=== PATIENT | female | born 1990 | race Two or more races ===

== ENCOUNTER 2017-08-22 03:22 | Emergency (ER) | payer BC, OTHER ==
[~2017-08-22] VITALS: Ht 157.5 cm; Wt 72.1 kg
[~2017-08-22 03:22] MED LIST: MELO7.5T5 PO; TRAM50TA PO; [UNRECOGNIZED DRUG - CODE] PO
--- NOTE | 2017-08-22 03:28 | ED.ADGEN ---
Past History Past Medical History: No Pertinent History, Other (JESUS MANUEL GARAY MD) Past Surgical History: No Surgical History (JESUS MANUEL GARAY MD) Smoking: Non-smoker Alcohol Use: None Drug Use: None (JESUS MANUEL GARAY MD) Adult General Chief Complaint Chief Complaint " I ve been vomiting... and now I got this chest pain here on the right.. and I could not sleep tonight..." (JESUS MANUEL GARAY MD) HPI HPI Patient is a 26 year old female who presents with above hx and complaints of Rt. chest wall pain. Pt. states it started with nausea and vomiting 3 - 4 days ago and now dry heaves. Pt. developed chest pain that is reproducible by palpation, deep breaths and cough on the right. Mild right upper quadrant abdomen tenderness on palpation. Patient denies risk of . Patient denies trauma other than the vomiting. Patient denies any history of immunosuppression, travel or specific ill contacts. No previous cardiac history. No prior hx of gallbladder problems. Pt. has no primary. (JESUS MANUEL GARAY MD) HPI Shayy describes [id number] dull constant right upper quadrant that is worse with eating and palpation. (HELENA SHAW MD) Review of Systems Review of Systems Constitutional: Denies fever or chills [] Eyes: Denies change in visual acuity, redness, or eye pain [] HENT: History of nasal congestion Respiratory:Some cough and shortness of breath []Hr. Rt. chest wall pain. Increased pain with deep breaths and movement. Cardiovascular: No additional information not addressed in HPI [] GI: History of abdominal pain, nausea, vomiting,. Patient denies bloody stools or diarrhea [] : Denies dysuria or hematuria [] Musculoskeletal: Denies back pain or joint pain [] Integument: Denies rash or skin lesions [] Neurologic: Denies headache, focal weakness or sensory changes [] Endocrine: Denies polyuria or polydipsia [] (JESUS MANUEL GARAY MD) Family History Family History Noncontributory (JESUS MANUEL GARAY MD) Current Medications Current Medications Current Medications Medications (Trade) Dose Ordered Sig/Chidi Start Time Stop Time Status Last Admin Dose Admin Albuterol Sulfate (Ventolin Hfa) 2 puff 1X ONCE 08/22/17 05:00 08/22/17 05:01 DC 08/22/17 04:58 2 PUFF Aspirin (Children'S Aspirin) 324 mg 1X ONCE 08/22/17 04:00 08/22/17 04:01 DC 08/22/17 04:16 324 MG Azithromycin (Zithromax) 500 mg 1X ONCE 08/22/17 05:00 08/22/17 05:01 DC 08/22/17 05:03 500 MG Enoxaparin Sodium (Lovenox 80mg Syringe) 70 mg 1X ONCE 08/22/17 06:00 08/22/17 06:01 DC 08/22/17 06:50 70 MG Famotidine (Pepcid) 20 mg 1X ONCE 08/22/17 07:30 08/22/17 07:31 DC 08/22/17 07:18 20 MG Hydromorphone HCl (Dilaudid) 0.5 mg 1X ONCE 08/22/17 10:20 08/22/17 10:21 DC Info (Do NOT chart on this entry -- for MONITORING) 1 each PRN DAILY PRN 08/22/17 06:00 08/24/17 05:59 Iohexol (Omnipaque 300 Mg/ml) 75 ml 1X ONCE 08/22/17 06:00 08/22/17 06:01 DC 08/22/17 06:12 75 ML Ketorolac Tromethamine (Toradol) 30 mg 1X ONCE 08/22/17 04:30 08/22/17 04:53 DC 08/22/17 04:23 30 MG Morphine Sulfate (Morphine 10mg Syringe) 10 mg 1X ONCE 08/22/17 07:30 08/22/17 07:31 DC 08/22/17 07:17 10 MG Ondansetron HCl (Zofran Odt) 8 mg 1X ONCE 08/22/17 04:00 08/22/17 04:01 DC 08/22/17 04:17 8 MG Ondansetron HCl (Zofran) 4 mg 1X ONCE 08/22/17 10:20 08/22/17 10:21 DC Piperacillin Sod/ Tazobactam Sod 3.375 gm/Sodium Chloride 50 ml @ 100 mls/hr 1X ONCE 08/22/17 10:20 08/22/17 10:49 Prednisone (Prednisone) 50 mg 1X ONCE 08/22/17 05:00 08/22/17 05:01 DC 08/22/17 05:03 50 MG Sodium Chloride 1,000 ml @ 1,000 mls/hr 1X ONCE 08/22/17 07:00 08/22/17 07:59 DC 08/22/17 07:13 1,000 MLS/HR (HELENA SHAW MD) Current Medications See nursing for home meds (JESUS MANUEL GARAY MD) Allergies Allergies Allergies Coded Allergies Type Severity Reaction Last Updated Verified peanut Allergy Intermediate N/V SWELLING 08/22/17 Yes (HELENA SHAW MD) Physical Exam Physical Exam Constitutional: Well developed, well nourished, [id number] distress, non- toxic appearance. [] HENT: Normocephalic, atraumatic, bilateral external ears normal, oropharynx moist, no oral exudates, nose nasal congestion. Eyes: PERRLA, EOMI, conjunctiva normal, no discharge. [] Neck: Normal range of motion, no tenderness, supple, no stridor. [] Cardiovascular:Heart rate regular rhythm, no murmur [] Lungs & Thorax: Bilateral breath sounds equal at apexes on auscultation [. Rt. basilar crackles - clears with cough. Abdomen: Bowel sounds normal, soft, min. tenderness rt. upper abd. , no masses , no pulsatile masses. [] Skin: Warm, dry, no erythema, no rash. Multiple tattoos Back: No tenderness, no CVA tenderness. [] Extremities: No tenderness, no cyanosis, no clubbing, ROM intact, no edema. [No cording noted Neurologic: Alert and oriented X 3, normal motor function, normal sensory function, no focal deficits noted. [] Psychologic: Affect normal, judgement normal, mood normal. [] (JESUS MANUEL GARAY MD) Physical Exam Gen.: Mild distress noted. Heart: Regular rate and rhythm, clear to auscultation Pulm: Clear to auscultation bilaterally Abdomen: Moderate right upper quadrant tenderness to palpation, generalized tenderness to palpation noted (HELENA SHAW MD) Current Patient Data Vital Signs Vital Signs Date Time Temp Pulse Resp B/P (MAP) Pulse Ox O2 Delivery O2 Flow Rate FiO2 08/22/17 09:12 78 16 116/50 (72) 99 08/22/17 07:50 Room Air 08/22/17 06:51 98.3 (HELENA SHAW MD) Lab Results Laboratory Tests Test 08/22/17 03:33 08/22/17 03:52 08/22/17 04:09 Urine Collection Type Void Urine Color Yellow Urine Clarity Hazy Urine pH 6.0 Urine Specific Carson 1.025 Urine Protein Neg (NEG-TRACE) Urine Glucose (UA) Neg mg/dL (NEG) Urine Ketones (Stick) Neg mg/dL (NEG) Urine Blood Trace (NEG) Urine Nitrite Neg (NEG) Urine Bilirubin Neg (NEG) Urine Urobilinogen Dipstick 1 mg/dL (0.2 mg/dL) Urine Leukocyte Esterase Neg (NEG) Urine RBC 3-5 /HPF (0-2) Urine WBC 1-4 /HPF (0-4) Urine Squamous Epithelial Cells Mod /LPF Urine Bacteria Few /HPF (0-FEW) Urine Mucus Mod /LPF Urine Opiates Screen Neg (NEG) Urine Methadone Screen Neg (NEG) Urine Barbiturates Neg (NEG) Urine Phencyclidine Screen Neg (NEG) Urine Amphetamine/Methamphetamine Neg (NEG) Urine Benzodiazepines Screen Neg (NEG) Urine Cocaine Screen Neg (NEG) Urine Cannabinoids Screen Neg (NEG) Urine Ethyl Alcohol Neg (NEG) POC Urine HCG, Qualitative hcg negative (Negative) White Blood Count 10.9 x10^3/uL (4.0-11.0) Red Blood Count 4.67 x10^6/uL (3.50-5.40) Hemoglobin 13.8 g/dL (12.0-15.5) Hematocrit 40.4 % (36.0-47.0) Mean Corpuscular Volume 87 fL (79-100) Mean Corpuscular Hemoglobin 30 pg (25-35) Mean Corpuscular Hemoglobin Concent 34 g/dL (31-37) Red Cell Distribution Width 14.9 % (11.5-14.5) H Platelet Count 305 x10^3/uL (140-400) Neutrophils (%) (Auto) 74 % (31-73) H Lymphocytes (%) (Auto) 19 % (24-48) L Monocytes (%) (Auto) 6 % (0-9) Eosinophils (%) (Auto) 1 % (0-3) Basophils (%) (Auto) 0 % (0-3) Neutrophils # (Auto) 8.0 x10^3uL (1.8-7.7) H Lymphocytes # (Auto) 2.1 x10^3/uL (1.0-4.8) Monocytes # (Auto) 0.7 x10^3/uL (0.0-1.1) Eosinophils # (Auto) 0.1 x10^3/uL (0.0-0.7) Basophils # (Auto) 0.0 x10^3/uL (0.0-0.2) Prothrombin Time 10.2 SEC (9.4-11.4) Prothrombin Time INR 1.0 (0.9-1.1) PTT 27 SEC (23-33) D-Dimer (Sabiha) 0.63 mg/L (0.00-0.50) H Sodium Level 136 mmol/L (136-145) Potassium Level 3.5 mmol/L (3.5-5.1) Chloride Level 103 mmol/L (98-107) Carbon Dioxide Level 24 mmol/L (21-32) Anion Gap 9 (6-14) Blood Urea Nitrogen 10 mg/dL (7-20) Creatinine 0.7 mg/dL (0.6-1.0) Estimated GFR (Cockcroft-Gault) 99.6 Glucose Level 109 mg/dL (70-99) H Calcium Level 8.9 mg/dL (8.5-10.1) Magnesium Level 1.8 mg/dL (1.8-2.4) Total Bilirubin 0.5 mg/dL (0.2-1.0) Direct Bilirubin 0.1 mg/dL (0.0-0.2) Aspartate Amino Transferase (AST) 17 U/L (15-37) Alanine Aminotransferase (ALT) 26 U/L (14-59) Alkaline Phosphatase 78 U/L (46-116) Creatine Kinase 75 U/L (26-192) Creatine Kinase MB (Mass) < 0.5 ng/mL (0.0-3.6) Creatine Kinase MB Relative Index 0.7 % (0-4) Troponin I Quantitative < 0.017 ng/mL (0-0.055) [id number]-Ikw-N-Type Natriuretic Peptide 22 pg/mL (0-124) Total Protein 8.3 g/dL (6.4-8.2) H Albumin 4.0 g/dL (3.4-5.0) Amylase Level 144 U/L (25-115) H Lipase 139 U/L (73-393) Serum Test, Qualitative Negative (NEG) (HELENA SHAW MD) Lab Results Laboratory Tests Test 08/22/17 03:33 08/22/17 03:52 08/22/17 04:09 Urine Collection Type Void Urine Color Yellow Urine Clarity Hazy Urine pH 6.0 Urine Specific [place] 1.025 Urine Protein Neg (NEG-TRACE) Urine Glucose (UA) Neg mg/dL (NEG) Urine Ketones (Stick) Neg mg/dL (NEG) Urine Blood Trace (NEG) Urine Nitrite Neg (NEG) Urine Bilirubin Neg (NEG) Urine Urobilinogen Dipstick 1 mg/dL (0.2 mg/dL) Urine Leukocyte Esterase Neg (NEG) Urine RBC 3-5 /HPF (0-2) Urine WBC 1-4 /HPF (0-4) Urine Squamous Epithelial Cells Mod /LPF Urine Bacteria Few /HPF (0-FEW) Urine Mucus Mod /LPF Urine Opiates Screen Neg (NEG) Urine Methadone Screen Neg (NEG) Urine Barbiturates Neg (NEG) Urine Phencyclidine Screen Neg (NEG) Urine Amphetamine/Methamphetamine Neg (NEG) Urine Benzodiazepines Screen Neg (NEG) Urine Cocaine Screen Neg (NEG) Urine Cannabinoids Screen Neg (NEG) Urine Ethyl Alcohol Neg (NEG) POC Urine HCG, Qualitative hcg negative (Negative) White Blood Count 10.9 x10^3/uL (4.0-11.0) Red Blood Count 4.67 x10^6/uL (3.50-5.40) Hemoglobin 13.8 g/dL (12.0-15.5) Hematocrit 40.4 % (36.0-47.0) Mean Corpuscular Volume 87 fL (79-100) Mean Corpuscular Hemoglobin 30 pg (25-35) Mean Corpuscular Hemoglobin Concent 34 g/dL (31-37) Red Cell Distribution Width 14.9 % (11.5-14.5) H Platelet Count 305 x10^3/uL (140-400) Neutrophils (%) (Auto) 74 % (31-73) H Lymphocytes (%) (Auto) 19 % (24-48) L Monocytes (%) (Auto) 6 % (0-9) Eosinophils (%) (Auto) 1 % (0-3) Basophils (%) (Auto) 0 % (0-3) Neutrophils # (Auto) 8.0 x10^3uL (1.8-7.7) H Lymphocytes # (Auto) 2.1 x10^3/uL (1.0-4.8) Monocytes # (Auto) 0.7 x10^3/uL (0.0-1.1) Eosinophils # (Auto) 0.1 x10^3/uL (0.0-0.7) Basophils # (Auto) 0.0 x10^3/uL (0.0-0.2) Prothrombin Time 10.2 SEC (9.4-11.4) Prothrombin Time INR 1.0 (0.9-1.1) PTT 27 SEC (23-33) D-Dimer (Sabiha) 0.63 mg/L (0.00-0.50) H Sodium Level 136 mmol/L (136-145) Potassium Level 3.5 mmol/L (3.5-5.1) Chloride Level 103 mmol/L (98-107) Carbon Dioxide Level 24 mmol/L (21-32) Anion Gap 9 (6-14) Blood Urea Nitrogen 10 mg/dL (7-20) Creatinine 0.7 mg/dL (0.6-1.0) Estimated GFR (Cockcroft-Gault) 99.6 Glucose Level 109 mg/dL (70-99) H Calcium Level 8.9 mg/dL (8.5-10.1) Magnesium Level 1.8 mg/dL (1.8-2.4) Total Bilirubin 0.5 mg/dL (0.2-1.0) Direct Bilirubin 0.1 mg/dL (0.0-0.2) Aspartate Amino Transferase (AST) 17 U/L (15-37) Alanine Aminotransferase (ALT) 26 U/L (14-59) Alkaline Phosphatase 78 U/L (46-116) Creatine Kinase 75 U/L (26-192) Creatine Kinase MB (Mass) < 0.5 ng/mL (0.0-3.6) Creatine Kinase MB Relative Index 0.7 % (0-4) Troponin I Quantitative < 0.017 ng/mL (0-0.055) JI-Zwp-T-Type Natriuretic Peptide 22 pg/mL (0-124) Total Protein 8.3 g/dL (6.4-8.2) H Albumin 4.0 g/dL (3.4-5.0) Amylase Level 144 U/L (25-115) H Lipase 139 U/L (73-393) Thyroid Stimulating Hormone (TSH) 1.506 uIU/mL (0.358-3.740) Serum Test, Qualitative Negative (NEG) (JESUS MANUEL GARAY MD) EKG EKG [] (JESUS MANUEL GARAY MD) Radiology/Procedures Radiology/Procedures My interpretation of chest x-ray shows slightly patchy infiltrate right lower versus atelectasis. Abdomen film shows a nonspecific bowel gas pattern. CT chest, - cuts of abdomen shows what appears to be a thick gallbladder wall and stones. Recommend ultrasound for further definition for possible gallstones and cholecystitis.[] (JESUS MANUEL GARAY MD) Radiology/Procedures Ultrasound gallbladder Impressions: Cholecystitis was noted (HELENA SHAW MD) Course & Med Decision Making Course & Med Decision Making Pertinent Labs and Imaging studies reviewed. (See chart for details) Ultrasound pending at shift change. Dr. Oh will assume care and disposition. Checkout given on pt. at 0700 hrs. [] (JESUS MANUEL GARAY MD) Final Impression Final Impression 1. Chest pain 2. Nausea and vomiting[] 3. Elevated D-dimer 4. Gallstones/cholecystitis 5. Elevated amylase Problems: (JESUS MANUEL GARAY MD) Final Impression Shayy was found to have cholecystitis on ultrasound of her gallbladder and liver. Surgery was contacted by phone and recommended transfer to [facility] with admission to medicine service. She was started on Zosyn and her symptoms were managed. She is transferred in stable condition for further management Problems: (HELENA SHAW MD) Dragon Disclaimer Dragon Disclaimer This electronic medical record was generated, in whole or in part, using a voice recognition dictation system. (JESUS MANUEL GARAY MD) JESUS MANUEL GARAY MD Aug 22, 2017 03:28 HELENA SHAW MD Aug 22, 2017 10:33
[2017-08-22] MEDS ORDERED: dayquil (03:52)
[2017-08-22] MEDS ORDERED: nyquil (03:52)
[2017-08-22] MEDS ORDERED: melatonin (03:52)
--- NOTE | 2017-08-22 03:58 | EKG ---
[address] [address] Test Date: 2017-08-22 Test Time: 03:51:30 Pat Name: LOKI VU Department: Room: Gender: F Heavy Machinery Operator: : [id number] Requested By: JESUS MANUEL GARAY Order Number: [id number] Reading MD: Measurements Intervals [place] Rate: 73 P: 36 WA: 128 QRS: 21 QRSD: 72 T: 9 QT: 362 QTc: 402 Interpretive Statements SINUS RHYTHM NORMAL ECG RI6.01 No previous ECG available for comparison
[2017-08-22] MEDS ORDERED: ASPIRIN 81 MG TAB.CHEW PO ONE (04:00)
[2017-08-22] MEDS ORDERED: ONDANSETRON ODT 4 MG TAB.RAPDIS PO ONE (04:00)
[2017-08-22 04:27] LABS: BASO % 0 % (0-3); EOS # 0.1 x10^3/uL (0.0-0.7); EOS % 1 % (0-3); HEMATOCRIT 40.4 % (36.0-47.0); HEMOGLOBIN 13.8 g/dL (12.0-15.5); LYMPH # 2.1 x10^3/uL (1.0-4.8); LYMPH % 19 % (24-48); MEAN CORPUSCULAR HEMOGLOBIN 30 pg (25-35); MEAN CORPUSCULAR HGB CONC 34 g/dL (31-37); MEAN CORPUSCULAR VOLUME 87 fL (79-100); MONO # 0.7 x10^3/uL (0.0-1.1); MONO % 6 % (0-9); NEUT % 74 % (31-73); PLATELET COUNT 305 x10^3/uL (140-400); RED BLOOD COUNT 4.67 x10^6/uL (3.50-5.40); RED CELL DISTRIBUTION WIDTH 14.9 % (11.5-14.5); WHITE BLOOD COUNT 10.9 x10^3/uL (4.0-11.0)
[2017-08-22 04:30] LABS: BARBITURATES NEG (NEG); BENZODIAZEPINES NEG (NEG); CANNABINOIDS NEG (NEG); COCAINE NEG (NEG); METHADONE NEG (NEG); OPIATES NEG (NEG); PHENCYCLIDINE NEG (NEG)
[2017-08-22] MEDS ORDERED: KETOROLAC 30 MG/ML VIAL. IV ONE (04:30)
[2017-08-22 04:36] LABS: PREG TEST PT QUAL NEGATIVE (NEG)
[2017-08-22 04:37] LABS: BACTERIA,URINE FEW /HPF (0-FEW); BILIRUBIN,URINE NEG (NEG); CLARITY,URINE HAZY; COLOR,URINE YELLOW; GLUCOSE,URINE NEG (NEG); NITRITE,URINE NEG (NEG); SQUAMOUS EPITHELIAL CELL,UR MOD /LPF; UROBILINOGEN,URINE 1 mg/dL (0.2 mg/dL)
[2017-08-22 04:42] LABS: AMPHETAMINE/METHAMPHETAMINE NEG (NEG)
[2017-08-22 04:48] LABS: ALK PHOS 78 U/L (46-116); ALT (SGPT) 26 U/L (14-59); AMYLASE 144 U/L (25-115); ANION GAP 9 (6-14); AST (SGOT) 17 U/L (15-37); BLOOD UREA NITROGEN 10 mg/dL (7-20); CALCIUM 8.9 mg/dL (8.5-10.1); CARBON DIOXIDE 24 mmol/L (21-32); CHLORIDE 103 mmol/L (98-107); CREATINE KINASE 75 U/L (26-192); CREATININE 0.7 mg/dL (0.6-1.0); DIRECT BILIRUBIN 0.1 mg/dL (0.0-0.2); GFR 99.6; GLUCOSE 109 mg/dL (70-99); LIPASE 139 U/L (73-393); MAGNESIUM 1.8 mg/dL (1.8-2.4); POTASSIUM 3.5 mmol/L (3.5-5.1); SODIUM 136 mmol/L (136-145); TOTAL BILIRUBIN 0.5 mg/dL (0.2-1.0); TOTAL PROTEIN 8.3 g/dL (6.4-8.2)
[2017-08-22] MEDS ORDERED: predniSONE 10 MG TABLET PO ONE (05:00)
[2017-08-22] MEDS ORDERED: ALBUTEROL SULFATE 8GM INHALER. INH ONE (05:00)
[2017-08-22] MEDS ORDERED: AZITHROMYCIN 250 MG TABLET. PO ONE (05:00)
[2017-08-22] MEDS ORDERED: CONTRAST GIVEN MC PRN (06:00)
[2017-08-22] MEDS ORDERED: IOHEXOL 300 MG/ML 75 ML VIAL. IV ONE (06:00)
[2017-08-22] MEDS ORDERED: ENOXAPARIN ** NOTE DOSE ** SYRINGE SQ ONE (06:00)
--- NOTE | 2017-08-22 06:40 | RAD ---
CT angiography chest with contrast HISTORY: Chest pain, shortness of breath, cough, congestion, elevated d-dimer. TECHNIQUE: Helical CT imaging of the chest with 3-D MIP reconstructions of the pulmonary arteries to assess for emboli with 75 mL Omnipaque 300 intravenous contrast. FINDINGS: Density within the gallbladder could be a gallstone and there is edema surrounding the gallbladder and possible wall thickening raising the possibility of cholecystitis. No pulmonary artery embolus. Thoracic aorta and esophagus are unremarkable. Heart size normal. No adenopathy in the chest. Mild areas of mucosal irregularity in a thin and within the trachea could be related to mucous, a thin web cannot be excluded. No pneumothorax, pulmonary opacities or pleural effusions. Bones unremarkable. IMPRESSION: 1. No acute process in the chest. No pulmonary artery embolus. 2. Probable gallstone and gallbladder wall thickening and surrounding edema raising suspicion of cholecystitis. This could be further characterized by sonography. Exposure: One or more of the following individualized dose reduction techniques were utilized for this examination: 1. Automated exposure control 2. Adjustment of the mA and/or kV according to patient size 3. Use of iterative reconstruction technique Electronically signed by: Darius Olguin MD (08/22/2017 6:37 AM) [id number]
[2017-08-22] MEDS ORDERED: IV NORMAL SALINE 1,000ML 1,000 ML IV ONE (07:00)
[2017-08-22] MEDS ORDERED: FAMOTIDINE 20 MG/2 ML VIAL IVP ONE (07:30)
[2017-08-22] MEDS ORDERED: MORPHINE SULFATE 10 MG/ML SYRINGE. SQ ONE (07:30)
--- NOTE | 2017-08-22 09:29 | RAD ---
Limited abdomen ultrasound study right upper quadrant History: Abnormal chest CTA involving the gallbladder. Abdominal pain. Findings: The pancreas is not well visualized due to overlying bowel gas. There is a prominent gallstone within the gallbladder measuring 21 mm. There is gallbladder wall thickening measuring 6 mm. Biliary sludge is seen within the gallbladder. Positive Weber's sign was elicited during transducer examination of the gallbladder. The findings are consistent with cholecystitis. The extra hepatic bile duct measures 4 mm in caliber which is normal. The liver is homogeneous and is not enlarged measuring about 14 cm in length. The length of the right kidney is 10.6 cm. No hydronephrosis or renal mass or perinephric fluid collection is seen on the right side. IMPRESSION: Cholelithiasis and cholecystitis.
--- NOTE | 2017-08-22 09:36 | RAD ---
Two-view abdominal series History: Nausea and vomiting abdominal pain . Findings: No obstructive bowel pattern is seen. No air-fluid levels are seen. No free intraperitoneal air is seen. The osseous structures are intact. IMPRESSION: No acute radiographic abnormality is seen.
--- NOTE | 2017-08-22 09:59 | RAD ---
2 view CXR: Clinical indications: Chest congestion and cough.. Findings: No acute lung infiltrate or pleural effusion or pulmonary edema or lung mass or pneumothorax is seen. The heart size, pulmonary vasculature, mediastinum and both john are unremarkable. The osseous structures appear intact. Impression: No acute radiographic abnormality is seen.
[2017-08-22] MEDS ORDERED: HYDROmorphone PF 1 MG/ML DISP.SYRIN IV ONE ×3 (10:20→14:15)
[2017-08-22] MEDS ORDERED: ONDANSETRON PF 4 MG/2 ML VIAL. IV ONE (10:20)
[2017-08-22] MEDS ORDERED: PIPERACILLIN/TAZOBACTAM 3.375 GM in IV NORMAL SALINE 50ML 50 ML IV ONE (10:20)
[2017-08-22] MEDS ORDERED: IV NORMAL SALINE 50ML 50 ML ONE (10:35)
[2017-08-22] MEDS ORDERED: PIPERACILLIN/TAZOBACTAM 3.375 GM VIAL IV ONE (10:35)
[2017-08-22 14:19] VITALS: BP 108/42
== END 2017-08-22 14:20 | disposition short-term general hospital (02) ==
LOC: ER 03:22
DX: R07.89 Other chest pain (principal); R11.2 Nausea with vomiting, unspecified; R79.1 Abnormal coagulation profile; R74.8 Abnormal levels of other serum enzymes; Z91.010 Allergy to peanuts
CPT/HCPCS: 36415; 71020; 71275; 74020; 76705; 80048; 80076; 80307; 81001; 81025; 82150; 82553; 83690; 83735; 83880; 84443; 84484; 84703; 85025; 85379; 85610; 85730; 93005; 94640; 96361; 96365; 96372; 96375; 96376; 99285; J0456; J1170; J1650; J1885; J2270; J2405; J2543; J7512; J7613; Q0162; Q9967; S0028; 94664; G0479; J7030

== ENCOUNTER → 2019-02-19 | Outpatient (CLI) | payer BC ==
[~2019-02-19] MED LIST changes: +dayquil; +melatonin; +nyquil
--- NOTE | 2019-02-19 14:49 | RAD ---
DATE: 02/19/2019 EXAM: MAMMO NANCY MONTES, BREAST RIGHT HISTORY: Right breast lump COMPARISON: Baseline study This study was interpreted with the benefit of Computerized Aided Detection (CAD). Breast Density: SCATTERED The breast parenchyma shows scattered fibroglandular densities. Breast parenchyma level B. FINDINGS: 2-D and 3-D tomosynthesis imaging was performed in CC and MLO projections. The patient cannot currently pinpoint an area of suspicion. Reportedly the area of palpable concern noted by the physician was at the 6:00 location. No suspicious breast densities are seen. Benign-appearing lymph node type densities are present in both axillary regions. No suspicious microcalcifications are evident. Right breast ultrasound, 02/19/2019: A targeted ultrasound exam of the right breast was performed centered at the 6:00 location. Heterogeneous fibroglandular shadows are present. No solid mass or abnormal fluid collection is evident. IMPRESSION: 1. There is no mammographic evidence of malignancy in either breast. 2. The targeted ultrasound exam of the inferior aspect of the right breast reveals no abnormality. Further clinical surveillance is suggested. BI-RADS CATEGORY: 1 NEGATIVE RECOMMENDED FOLLOW-UP: CLIN FOLLOW UP IMAGING CLINICALLY INDICATED PQRS compliance statement: Patient information was entered into a reminder system with a target due date for the next mammogram. Mammography is a sensitive method for finding small breast cancers, but it does not detect them all and is not a substitute for careful clinical examination. A negative mammogram does not negate a clinically suspicious finding and should not result in delay in biopsying a clinically suspicious abnormality. "Our facility is accredited by the [employer] Mammography Program."
== END | disposition home or self-care (01) ==
LOC: MAMMO 13:21
PROVIDERS: ATTEND Registered Nurse
DX: R92.8 Other abnormal and inconclusive findings on diagnostic imaging of breast (principal)
CPT/HCPCS: 76641; 77066; G0279; 77062

== ENCOUNTER 2019-03-05 11:57 | Emergency (ER) | payer BC, OTHER ==
[~2019-03-05] VITALS: Ht 157.5 cm; Wt 68.9 kg
[2019-03-05 12:14] VITALS: BP 127/82
[2019-03-05] MEDS ORDERED: KETOROLAC 30 MG/ML VIAL. IM ONE (12:30)
[2019-03-05] MEDS ORDERED: NEOMY/BACITR/POLYMYXIN OINT PACKET. TP ONE (12:30)
--- NOTE | 2019-03-05 12:57 | RAD ---
EXAM: Head and maxillofacial bone CT without contrast. HISTORY: Blunt trauma. TECHNIQUE: Computed tomographic images of the head and maxillofacial bones were obtained without contrast. *One or more of the following individualized dose reduction techniques were utilized for this examination: 1. Automated exposure control. 2. Adjustment of the mA and/or kV according to patient size. 3. Use of iterative reconstruction technique. COMPARISON: None. FINDINGS: There is no acute or subacute extra-axial or intraparenchymal hemorrhage. There is no mass effect or midline shift. There is no hydrocephalus. The muller-white matter differentiation pattern is intact. No suspicious calvarial lesion is seen. The mastoid air cells are clear. The temporomandibular joints are intact. The paranasal sinuses are clear. The ostiomeatal units are patent. There is minimal leftward nasal septal deviation. The orbits are unremarkable. There is increased soft tissue density and skin thickening overlying the left maxilla, likely due to a left infraorbital and anterior maxillary soft tissue hematoma. The visualized portions of the cervical spine are unremarkable. There is no neck lymphadenopathy within the [id number]. IMPRESSION: 1. Suspected left infraorbital and anterior maxillary soft tissue hematoma. No maxillofacial bone fracture is seen. 2. No acute intracranial finding. Electronically signed by: Martha Her MD (03/05/2019 12:54 PM) [place] [id number]
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
== END 2019-03-05 13:14 | disposition home or self-care (01) ==
LOC: ER 11:57
DX: S00.83XA Contusion of other part of head, initial encounter (principal); R51 Headache; Z91.010 Allergy to peanuts; Y04.0XXA Assault by unarmed brawl or fight, initial encounter; Y93.89 Activity, other specified; Y92.148 Other place in prison as the place of occurrence of the external cause; Y99.8 Other external cause status
CPT/HCPCS: 70450; 70486; 96372; 99284; J1885

== ENCOUNTER → 2019-03-24 | Outpatient (CLI) | payer OTHER, BC ==
[2019-03-05 12:14] VITALS: BP 127/82
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
== END | disposition home or self-care (01) ==
LOC: RAD 11:44
PROVIDERS: ATTEND Registered Nurse
DX: M25.562 Pain in left knee (principal)
CPT/HCPCS: 73562

== ENCOUNTER → 2019-03-31 | Outpatient (CLI) | payer BC, OTHER ==
[2019-03-05 12:14] VITALS: BP 127/82
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
== END | disposition home or self-care (01) ==
LOC: PMG 11:35
PROVIDERS: ATTEND Registered Nurse
DX: S99.822A Other specified injuries of left foot, initial encounter (principal); M77.32 Calcaneal spur, left foot; X50.1XXA Overexertion from prolonged static or awkward postures, initial encounter; Y93.89 Activity, other specified; Y92.89 Other specified places as the place of occurrence of the external cause; Y99.8 Other external cause status
CPT/HCPCS: 73610; 73620

== ENCOUNTER 2021-08-09 13:56 | Emergency (ER) | payer BC, OTHER ==
[~2021-08-09] VITALS: Ht 157.5 cm; Wt 72.0 kg
[2021-08-09 14:12] VITALS: BP 128/86
[2021-08-09] MEDS ORDERED: DEXAMETHASONE SOD PHOS 10 MG/ML VIAL. PO ONE (14:30)
--- NOTE | 2021-08-09 14:39 | PHYS DOC ---
Past History Past Medical History: No Pertinent History, Other Past Surgical History: Cholecystectomy Smoking: Non-smoker Alcohol Use: Occasionally Drug Use: None General Adult EDM: Chief Complaint: SKIN RASH/ABSCESS HPI: HPI: 30-year-old female presents with pruritus. The patient got her second Pfizer COVID-19 vaccine yesterday. Today she has been having diaphoretic feeling in her upper chest but it has extended into her bilateral upper extremities and flank as well. She has not noticed any kind of rash. She is taking Benadryl which helps some. She just wants to make sure she does not need to be worried about a more severe reaction. She denies fever or chills. She had no difficu lty breathing or swallowing. Review of Systems: Review of Systems: Constitutional: Denies fever or chills Eyes: Denies change in visual acuity HENT: Denies nasal congestion or sore throat Respiratory: Denies cough or shortness of breath Cardiovascular: Denies chest pain or edema GI: Denies abdominal pain, nausea, vomiting, bloody stools or diarrhea : Denies dysuria Musculoskeletal: Denies back pain or joint pain Integument: Denies rash Neurologic: Pruritus. Denies headache, focal weakness or sensory changes Endocrine: Denies polyuria or polydipsia Lymphatic: Denies swollen glands Psychiatric: Denies depression or anxiety Current Medications: Current Meds: Current Medications Medications (Trade) Dose Ordered Sig/[facility] Start Time Stop Time Status Last Admin Dose Admin Dexamethasone Sodium Phosphate (Decadron) 10 mg 1X ONCE 08/09/21 14:30 08/09/21 14:31 DC Allergies: Allergies: Allergies Coded Allergies Type Severity Reaction Last Updated Verified peanut Allergy Intermediate N/V SWELLING 08/22/17 Yes Physical Exam: PE: Constitutional: Well developed, well nourished, no acute distress, non-toxic appearance. [] HENT: Normocephalic, atraumatic, bilateral external ears normal, oropharynx moist, no oral exudates, nose normal. [] Eyes: PERRLA, EOMI, conjunctiva normal, no discharge. [] Neck: Normal range of motion, no tenderness, supple, no stridor. [] Cardiovascular: Heart rate regular rhythm, no murmur [] Lungs & Thorax: Bilateral breath sounds clear to auscultation [] Abdomen: Bowel sounds normal, soft, no tenderness, no masses, no pulsatile masses. [] Skin: Warm, dry, no erythema, no rash. Many tattoos. [] Back: No tenderness, no CVA tenderness. [] Extremities: No tenderness, no cyanosis, no clubbing, ROM intact, no edema. [] Neurologic: Alert and oriented X 3, normal motor function, normal sensory function, no focal deficits noted. [] Psychologic: Affect normal, judgement normal, mood normal. [] Current Patient Data: Vital Signs: Vital Signs Date Time Temp Pulse Resp B/P (MAP) Pulse Ox O2 Delivery O2 Flow Rate FiO2 08/09/21 14:12 98.1 98 16 128/86 (100) 99 Room Air EKG: EKG: [] Radiology/Procedures: Radiology/Procedures: [] Heart Score: C/O Chest Pain: N/A Risk Factors: Risk Factors: DM, Current or recent (<one month) smoker, HTN, HLP, family history of CAD, obesity. Risk Scores: Score 0 - 3: 2.5% MACE over next 6 weeks - Discharge Home Score 4 - 6: 20.3% MACE over next 6 weeks - Admit for Clinical Observation Score 7 - 10: 72.7% MACE over next 6 weeks - Early Invasive Strategies Course & Med Decision Making: Course & Med Decision Making Pertinent Labs and Imaging studies reviewed. (See chart for details) The patient does not appear to be having allergic reaction as she has no skin findings. It is also been more than 24 hours. She mentions her gait is suggestive to the touch and she feels a bit achy. This is likely normal reaction to the vaccine. I will give her a single dose of Decadron in the ER and advised that she continue Benadryl and Pepcid at home. Patient is in agreement with this plan. She is stable for discharge at this time. [] Dragon Disclaimer: Dragon Disclaimer: This electronic medical record was generated, in whole or in part, using a voice recognition dictation system. Departure Departure: Impression: Primary Impression: Generalized pruritus Disposition: HOME / SELF CARE / HOMELESS Condition: STABLE Referrals: BR[facility] CRUZ [facility] (PCP) Patient Instructions: Itching-Brief NADEEN MONTIEL DO Aug 09, 2021 14:39
== END 2021-08-09 15:00 | disposition home or self-care (01) ==
LOC: ER 13:56
DX: L29.9 Pruritus, unspecified (principal)
CPT/HCPCS: 99283; J1100

== ENCOUNTER 2022-01-15 15:11 | Emergency (ER) | payer BC ==
[~2022-01-15] VITALS: Ht 157.5 cm; Wt 72.0 kg
--- NOTE | 2022-01-15 16:02 | PHYS DOC ---
Past History Past Medical History: No Pertinent History, Other Past Surgical History: Cholecystectomy Smoking: Non-smoker Alcohol Use: Occasionally Drug Use: None General Adult EDM: Chief Complaint: Neck mass HPI: HPI: 31-year-old female presents with left-sided facial swelling and neck mass. The patient had an illness that she thought was a viral 2 to 3 weeks ago. She had a large erythematous tonsils but did not get a formal evaluation. Her symptoms have improved except that she still has a swollen lymph node or other mass in the left neck. She presents today because it has expanded to be bottom of her ear. It is very tender to palpation. It is painful when she swallows. She hernandez s not believe she has had a fever. Review of Systems: Review of Systems: Constitutional: Denies fever or chills Eyes: Denies change in visual acuity HENT: Sore throat, left facial mass Respiratory: Denies cough or shortness of breath Cardiovascular: Denies chest pain or edema GI: Denies abdominal pain, nausea, vomiting, bloody stools or diarrhea : Denies dysuria Musculoskeletal: Denies back pain or joint pain Integument: Denies rash Neurologic: Denies headache, focal weakness or sensory changes Endocrine: Denies polyuria or polydipsia Lymphatic: Denies swollen glands Psychiatric: Denies depression or anxiety Allergies: Allergies: Allergies Coded Allergies Type Severity Reaction Last Updated Verified peanut Allergy Intermediate N/V SWELLING 08/22/17 Yes Physical Exam: PE: Constitutional: Well developed, well nourished, no acute distress, non-toxic appearance. [] HENT: Normocephalic, atraumatic, bilateral external ears normal, oropharynx moist, erythematous tonsils without exudates, nose normal. Left tympanic membrane normal. [] Eyes: PERRLA, EOMI, conjunctiva normal, no discharge. [] Neck: Mass of the left anterior neck extending superiorly to the inferior, tender to palpation, no significant erythema. [] Cardiovascular: Heart rate regular rhythm, no murmur [] Lungs & Thorax: Bilateral breath sounds clear to auscultation [] Abdomen: Bowel sounds normal, soft, no tenderness, no masses, no pulsatile masses. [] Skin: Warm, dry, no erythema, no rash. [] Back: No tenderness, no CVA tenderness. [] Extremities: No tenderness, no cyanosis, no clubbing, ROM intact, no edema. [] Neurologic: Alert and oriented X 3, normal motor function, normal sensory function, no focal deficits noted. [] Psychologic: Affect normal, judgement normal, mood normal. [] Current Patient Data: Vital Signs: Vital Signs Date Time Temp Pulse Resp B/P (MAP) Pulse Ox O2 Delivery O2 Flow Rate FiO2 01/15/22 15:19 98.1 94 18 128/74 (92) 100 Room Air EKG: EKG: [] Radiology/Procedures: Radiology/Procedures: [] Impressions: Exam: CT neck with contrast INDICATION: Swollen left face, mass below ear TECHNIQUE: Sequential axial images through the neck obtained following the administration of 75 mL of Omni 300 IV contrast. Sagittal and coronal reformatted images were reconstructed from the axial data and reviewed. Exposure: One or more of the following in the visualized dose reduction techniques were utilized for this examination: 1. Automated exposure control 2. Adjustment of the MA and/or KV according to patient size 3. Use of iterative of reconstructive technique Comparisons: 08/22/2017 FINDINGS: Visualized intracranial structures are unremarkable. Globes and intraorbital contents are normal. Visualized portions of the paranasal sinuses and mastoid air cells are well-pneumatized. Mild fullness of the mucosa at the left lung base. Nasopharynx, hypopharynx and larynx are unremarkable. Cervical vasculature is patent. There are several enlarged bilateral upper cervical lymph nodes noted, greater on the left. Thyroid and salivary glands are within normal limits. Numerous pulmonary nodules in the visualized lung apices measuring up to 8 mm. No suspicious osseous lesions or acute fractures. IMPRESSION: 1. Bilateral upper cervical enlarged lymph nodes greater on the left, correlating to the palpable abnormality. Findings are nonspecific could relate to an underlying infectious or inflammatory in etiology. 2. Mild asymmetric fullness of the mucosa in the left common base. Correlate with direct visualization. 3. Numerous pulmonary nodules in the visualized lung apices. These nodules are all new when compared to study in 2017. Nonemergent chest CT is recommended for further evaluation. FOR INTERNAL CODING PURPOSES Critical result: Findings discussed with NADEEN MONTIEL DO at 01/15/2022 5:14 PM. RESULT CODE: (C) Electronically signed by: Cherrie Wong MD (01/15/2022 5:14 PM) [facility] DICTATED AND SIGNED BY: CHERRIE WONG MD DATE: 01/15/221651 CC: NADEEN MONTIEL DO; [facility] ~MTH0 0 Heart Score: C/O Chest Pain: N/A Risk Factors: Risk Factors: DM, Current or recent (<one month) smoker, HTN, HLP, family history of CAD, obesity. Risk Scores: Score 0 - 3: 2.5% MACE over next 6 weeks - Discharge Home Score 4 - 6: 20.3% MACE over next 6 weeks - Admit for Clinical Observation Score 7 - 10: 72.7% MACE over next 6 weeks - Early Invasive Strategies Course & Med Decision Making: Course & Med Decision Making Pertinent Labs and Imaging studies reviewed. (See chart for details) The patient's labs are unremarkable. Her CT scan does show some enlarged lymph nodes and nonspecific left tonsillar swelling. The patient also has some lung nodules which appear to be new incidentally seen on the CT. See official read for more details. I discussed this with the radiologist. He feels the patient should follow-up outpatient with ENT and with her primary doctor for monitoring of the lung findings. I have made the patient aware of this. Her rapid strep w as negative but I am getting go ahead and do a trial of Augmentin for 10 days. She is stable for discharge at this time. [] Dragon Disclaimer: Dragon Disclaimer: This electronic medical record was generated, in whole or in part, using a voice recognition dictation system. Departure Departure: Impression: Primary Impression: Neck mass Additional Impression: Lung nodules Disposition: HOME / SELF CARE / HOMELESS Condition: STABLE Referrals: [facility] CRU[facility] (PCP) Patient Instructions: Pulmonary Nodule, [id number], Tonsillitis, [id number] Scripts Amoxicillin/Potassium Clav (AMOX TR-K CLV 875-125 MG TAB) 1 Each Tablet 1 TAB PO BID for neck swelling, #20 TAB Prov: NADEEN MONTIEL DO 01/15/22 NADEEN MONTIEL DO Jan 15, 2022 16:02
[2022-01-15] MEDS ORDERED: IOHEXOL 300 MG/ML 75 ML VIAL. IV ONE (16:15)
[2022-01-15 16:31] LABS: BASO # 0.1 x10^3/uL (0.0-0.2); BASO % 1 % (0-3); EOS # 0.1 x10^3/uL (0.0-0.7); EOS % 2 % (0-3); HEMATOCRIT 38.2 % (36.0-47.0); HEMOGLOBIN 12.8 g/dL (12.0-15.5); LYMPH # 1.9 x10^3/uL (1.0-4.8); LYMPH % 25 % (24-48); MEAN CORPUSCULAR HEMOGLOBIN 31 pg (25-35); MEAN CORPUSCULAR HGB CONC 34 g/dL (31-37); MEAN CORPUSCULAR VOLUME 91 fL (79-100); MONO # 0.7 x10^3/uL (0.0-1.1); MONO % 10 % (0-9); NEUT # 4.9 x10^3uL (1.8-7.7); NEUT % 63 % (31-73); PLATELET COUNT 427 x10^3/uL (140-400); RED BLOOD COUNT 4.19 x10^6/uL (3.50-5.40); RED CELL DISTRIBUTION WIDTH 13.3 % (11.5-14.5); WHITE BLOOD COUNT 7.8 x10^3/uL (4.0-11.0)
[2022-01-15 16:35] LABS: CALCIUM 8.9 mg/dL (8.5-10.1); CREATININE 0.5 mg/dL (0.6-1.0); GFR 142.1; POTASSIUM 3.6 mmol/L (3.5-5.1)
[2022-01-15 16:41] LABS: ALBUMIN 3.6 g/dL (3.4-5.0); ALBUMIN/GLOBULIN RATIO 0.8 (1.0-1.7); TOTAL BILIRUBIN 0.2 mg/dL (0.2-1.0); TOTAL PROTEIN 8.3 g/dL (6.4-8.2)
[2022-01-15 17:15] VITALS: BP 119/80
--- NOTE | 2022-01-15 17:17 | RAD ---
Exam: CT neck with contrast INDICATION: Swollen left face, mass below ear TECHNIQUE: Sequential axial images through the neck obtained following the administration of 75 mL of Omni 300 IV contrast. Sagittal and coronal reformatted images were reconstructed from the axial data and reviewed. Exposure: One or more of the following in the visualized dose reduction techniques were utilized for this examination: 1. Automated exposure control 2. Adjustment of the MA and/or KV according to patient size 3. Use of iterative of reconstructive technique Comparisons: 08/22/2017 FINDINGS: Visualized intracranial structures are unremarkable. Globes and intraorbital contents are normal. Vis ualized portions of the paranasal sinuses and mastoid air cells are well-pneumatized. Mild fullness of the mucosa at the left lung base. Nasopharynx, hypopharynx and larynx are unremarkable. Cervical vasculature is patent. There are several enlarged bilateral upper cervical lymph nodes noted, greater on the left. Thyroid and salivary glands are within normal limits. Numerous pulmonary nodules in the visualized lung apices measuring up to 8 mm. No suspicious osseous lesions or acute fractures. IMPRESSION: 1. Bilateral upper cervical enlarged lymph nodes greater on the left, correlating to the palpable ab normality. Findings are nonspecific could relate to an underlying infectious or inflammatory in etiol ogy. 2. Mild asymmetric fullness of the mucosa in the left common base. Correlate with direct visualizati on. 3. Numerous pulmonary nodules in the visualized lung apices. These nodules are all new when compared to study in 2017. Nonemergent chest CT is recommended for further evaluation. FOR INTERNAL CODING PURPOSES Critical result: Findings discussed with NADEEN MONTIEL DO at 01/15/2022 5:14 PM. RESULT CODE: (C) Electronically signed by: Cherrie Salvador MD (01/15/2022 5:14 PM) [facility]
[2022-01-15] MEDS ORDERED: AMOX1TAB11 PO (17:19)
== END 2022-01-15 17:30 | disposition home or self-care (01) ==
LOC: ER 15:11
DX: R91.8 Other nonspecific abnormal finding of lung field (principal); Z91.010 Allergy to peanuts
CPT/HCPCS: 36415; 70491; 80053; 85025; 87040; 87070; 87880; 99285; Q9967

== ENCOUNTER → 2022-02-05 | Outpatient (CLI) | payer BC ==
[2022-01-15 17:15] VITALS: BP 119/80
[~2022-02-05] MED LIST changes: +AMOX1TAB11 PO
--- NOTE | 2022-02-05 13:52 | RAD ---
EXAMINATION: CT Chest Without IV contrast. INDICATION:31 years, Female, enlarged lymph nodes with evidence of pulmonary nodules. Further evaluat ion. COMPARISON: 01/15/2022 and 08/22/2017. TECHNIQUE: Spiral CT was obtained from the jugular notch through the posterior costophrenic recess. S agittal and coronal reformats were obtained. Exposure: One or more of the following individualized dose reduction techniques were utilized for thi s examination: 1. Automated exposure control 2. Adjustment of the mA and/or kV according to patient size 3. Use of iterative reconstruction technique. FINDINGS: LUNGS/PLEURA: Central airways are patent. No focal consolidation, pleural effusion or pneumothorax. I nnumerable variable size bilateral solid pulmonary nodule, the largest in the right upper lobe measur es 1.0 cm. MEDIASTINUM: Multiple prominent to mildly enlarged mediastinal lymph nodes, the largest measures 1.0 cm in maximum short axis. Evaluation of hilum lymph nodes is limited due to lack of IV contrast. The thoracic aorta and pulmonary arteries are normal in caliber. The heart is normal in size. No pericard ial effusion. No detectable calcified coronary atherosclerosis. The visualized thyroid and the esopha lori are unremarkable. AXILLA/SOFT TISSUE: No supraclavicular or axillary adenopathy. Regional soft tissues are within ward l limits. UPPER ABDOMEN: Cholecystectomy clips. BONES: No evidence of acute fractures or aggressive osseous lesions. IMPRESSION: 1. Innumerable variable size bilateral solid pulmonary nodules measuring up to 1.0 cm, new since 201 7. Differential consideration includes infectious/inflammatory process versus neoplastic process such as pulmonary lymphoma. Clinical correlation is advised. 2. Multiple prominent to mildly enlarged mediastinal lymph nodes, indeterminate. Electronically signed by: Isha Urias MD (02/05/2022 1:49 PM) [facility]
== END ==
LOC: CT 09:08
PROVIDERS: ATTEND Physician Assistant Medical
DX: R91.8 Other nonspecific abnormal finding of lung field (principal); R59.0 Localized enlarged lymph nodes; Z90.49 Acquired absence of other specified parts of digestive tract
CPT/HCPCS: 71250